=== PATIENT | female | born 1975 | race Caucasian/White ===

== ENCOUNTER 2022-05-13 13:10 | Outpatient (CLI) | payer OTHER, SELFPAY ==
--- NOTE | ~2022-05-13 | US_ITS ---
EXAMINATION: US transvaginal DATE: 05/13/2022 13:38 INDICATION: Dysmenorrhea, unspecified TECHNIQUE: Multiple endovaginal sonographic images of the pelvis were obtained. COMPARISON: None. FINDINGS: The uterus measures 8.2 x 3.7 x 4.9 cm. The endometrial complex measures 7 mm. The left ova ry is not visualized however no left adnexal abnormality is seen. The right ovary measures 2.4 x 1.9 x 1.9 cm. There is normal vascular flow in the right ovary. There is a small amount of likely physiol ogic free fluid in the left adnexa. IMPRESSION: 1. No sonographic correlate for the patient's symptoms. Reviewed, dictated and finalized at location L. L EDITOR
== END 2022-05-13 13:11 ==
PROVIDERS: PCP Physician Assistant; Visit Provider Advanced Practice Midwife
DX: N94.6 Dysmenorrhea, unspecified (principal)
CPT/HCPCS: 76830